=== PATIENT | male | born 1935 | race Caucasian/White ===

== ENCOUNTER 2020-07-13 09:48 | Inpatient (IN) | payer MEDICARE ==
[2020-07-13 10:39] LABS: #Basophils 0.1 10x3/uL (0.0-0.2); #Eosinphils 0.1 10x3/uL (0.0-0.5); #Monocytes 0.5 10x3/uL (0.0-1.1); #Neutrophils 6.4 10x3/uL (1.5-8.4); %Basophils 0.6 % (0.0-2.0); %Eosinophils 1.6 % (0.0-6.0); %Lymphocytes 11.4 % (18.0-47.0); %Monocytes 6.2 % (0.0-10.0); %Neutrophils 78.5 % (40.0-75.0); Hemoglobin 13.4 g/dL (13.5-17.5); Mean Corpuscular HGB CONC 32.8 g/dL (32.0-36.0); Mean Corpuscular Hemoglobin 30.4 pg (27.0-33.0); Mean Corpuscular Volume 92.7 fl (81.2-95.1); Mean Platelet Volume 10.5 fl (7.4-10.4); Platelet Count 162 10x3/uL (150-450); RBC Distribution Width 12.8 % (11.5-14.5); Red Blood Cell (RBC) Count 4.41 10x6/uL (4.32-5.72); White Blood Cell (WBC) Count 8.2 10x3/uL (3.5-10.5)
[2020-07-13 10:45] LABS: ALT (SGPT) 135 U/L (8-55); AST (SGOT) 59 U/L (5-34); Albumin 3.5 g/dL (3.4-4.8); Alkaline Phosphatase 194 U/L (40-110); Anion Gap 13 mmol/L (10-20); BUN (Urea Nitrogen) 25 mg/dL (8.4-25.7); Bilirubin, Total 1.1 mg/dL (0.2-1.2); Calc. Creatinine Clearance 0 mL/min (70-130); Calcium 8.4 mg/dL (7.8-10.44); Carbon Dioxide 22 mmol/L (23-31); Chloride 110 mmol/L (98-107); Globulin 2.7 g/dL (2.4-3.5); Glucose 143 mg/dL (83-110); Lipase 47 U/L (8-78); Potassium 3.6 mmol/L (3.5-5.1); Protein, Total 6.2 g/dL (5.8-8.1); Sodium 141 mmol/L (136-145)
[2020-07-13] MEDS ORDERED: Piperacillin/Tazobactam 3.375 GM VIAL ONE (12:16)
[2020-07-13] MEDS ORDERED: HYDROcodone/Acetaminophen 5/325 mg Tablet PO PRN (14:49)
[2020-07-13] MEDS ORDERED: Senokot S 8.6-50 MG TAB PO PRN (14:49)
[2020-07-13] MEDS ORDERED: Acetaminophen 325 MG TAB PO PRN (14:49)
[2020-07-13] MEDS ORDERED: Ondansetron PF 4 MG/2 ML Vial IVP PRN (14:49)
[2020-07-13] MEDS ORDERED: Morphine 2 MG/ML VIAL SLOW IVP PRN (14:58)
[2020-07-13 16:06] LABS: Band 1 % (5-11); Eosinophils 1 % (0-10); Hemoglobin 12.5 g/dL (13.5-17.5); Lymphocytes 12 % (21-51); MDiff Complete? YES; Mean Corpuscular HGB CONC 32.3 g/dL (32.0-36.0); Mean Corpuscular Volume 92.8 fl (81.2-95.1); Mean Platelet Volume 10.7 fl (7.4-10.4); Monocytes 5 % (0-10); Neutrophil 81 % (42-75); Platelet Count 126 10x3/uL (150-450); Platelet Morphology Comment Appears Decreased; RBC Morphology Normal; Red Blood Cell (RBC) Count 4.17 10x6/uL (4.32-5.72); White Blood Cell (WBC) Count 7.3 10x3/uL (3.5-10.5)
[2020-07-13] MEDS: Sodium Chloride 0.9% 1,000 ML IV SCH ×3 (16:23→20:58)
[2020-07-13 17:19] VITALS: BMI 26.6
[2020-07-13] MEDS: Piperacillin/Tazobactam 3.375 GM in Sodium Chloride 0.9% 100 ML IVPB SCH ×2 (18:29→23:44)
[2020-07-13] MEDS: Tamsulosin HCl 0.4 MG CAP PO SCH (20:56)
[2020-07-13] MEDS: Atorvastatin Calcium 20 MG TAB PO SCH (20:56)
[2020-07-13] MEDS: Zolpidem Tartrate 5 MG TAB PO PRN (22:19)
[2020-07-14 04:30] LABS: SARS-CoV-2 PCR by NAA Not Detected (NotDetected)
[2020-07-14] MEDS: Piperacillin/Tazobactam 3.375 GM in Sodium Chloride 0.9% 100 ML IVPB SCH ×4 (05:03→23:02)
[2020-07-14 06:47] LABS: ALT (SGPT) 85 U/L (8-55); AST (SGOT) 35 U/L (5-34); Albumin 2.9 g/dL (3.4-4.8); Alkaline Phosphatase 145 U/L (40-110); Anion Gap 10 mmol/L (10-20); BUN (Urea Nitrogen) 20 mg/dL (8.4-25.7); Calc. Creatinine Clearance 35 mL/min (70-130); Calcium 7.8 mg/dL (7.8-10.44); Carbon Dioxide 24 mmol/L (23-31); Chloride 114 mmol/L (98-107); Globulin 2.2 g/dL (2.4-3.5); Glucose 83 mg/dL (83-110); Protein, Total 5.1 g/dL (5.8-8.1); Sodium 144 mmol/L (136-145)
[2020-07-14 06:48] LABS: INR-International Normal Ratio 1.1; Prothrombin Time 11.1 sec (9.5-12.1)
[2020-07-14] MEDS: Tamsulosin HCl 0.4 MG CAP PO SCH ×2 (09:27→20:50)
[2020-07-14] MEDS: Losartan Potassium 50 MG TAB PO SCH (09:27)
[2020-07-14] MEDS ORDERED: hydrALAZINE 20 MG/ML VIAL SLOW IVP SCH (11:00)
[2020-07-14] MEDS ORDERED: PROPOFOL 20 ML ONE (13:00)
[2020-07-14] MEDS ORDERED: Lidocaine 2% MPF 10 ML AMP (For Epidural Use) ONE (13:06)
[2020-07-14] MEDS ORDERED: Fentanyl 100 MCG/2 ML VIAL ONE (13:07)
[2020-07-14] MEDS ORDERED: Iopamidol 15 ML ONE (13:08)
[2020-07-14] MEDS ORDERED: Famotidine/PF 20 mg/2ml Vial ONE (13:09)
[2020-07-14] MEDS ORDERED: SUGAMMADEX SODIUM 500 MG/5 ML VIAL ONE (13:09)
[2020-07-14] MEDS ORDERED: Rocuronium Bromide 10 MG/ML (10ML VIAL) ONE (13:24)
[2020-07-14] MEDS ORDERED: Ondansetron PF 4 MG/2 ML Vial ONE (13:25)
[2020-07-14] MEDS ORDERED: Metoclopramide HCl 10 MG/2 ML VIAL ONE (13:25)
[2020-07-14] MEDS ORDERED: Metoprolol Tartrate 5 MG/5 ML VIAL ONE ×2 (13:37→15:03)
[2020-07-14] MEDS ORDERED: Indomethacin 50 MG SUPP PR SCH (14:00)
[2020-07-14] MEDS ORDERED: ePHEDrine 50 MG/ML VIAL ONE (14:13)
[2020-07-14] MEDS ORDERED: Glycopyrrolate 0.2 MG/ML 5 ML SYRINGE ONE (14:26)
[2020-07-14] MEDS: Sodium Chloride 0.9% 1,000 ML IV SCH ×2 (15:38→21:57)
[2020-07-14] MEDS: Dutasteride 0.5 MG CAP PO SCH (15:38)
[2020-07-14] MEDS: Zolpidem Tartrate 5 MG TAB PO PRN (20:50)
[2020-07-14] MEDS: Atorvastatin Calcium 20 MG TAB PO SCH (20:50)
[2020-07-15] MEDS: Piperacillin/Tazobactam 3.375 GM in Sodium Chloride 0.9% 100 ML IVPB SCH ×2 (05:23→13:57)
[2020-07-15] MEDS: hydrALAZINE 20 MG/ML VIAL SLOW IVP PRN ×2 (05:25→13:48)
[2020-07-15] MEDS ORDERED: Bupivacaine PF 0.5% 30 ML VIAL ONE (07:00)
[2020-07-15] MEDS ORDERED: CEFAZOLIN 1 GM VIAL ONE (07:00)
[2020-07-15] MEDS ORDERED: EPINEPHrine 1 MG/ML AMP ONE (07:00)
[2020-07-15 07:18] LABS: #Basophils 0.1 10x3/uL (0.0-0.2); #Eosinphils 0.1 10x3/uL (0.0-0.5); #Monocytes 0.5 10x3/uL (0.0-1.1); #Neutrophils 5.3 10x3/uL (1.5-8.4); %Basophils 0.7 % (0.0-2.0); %Eosinophils 1.5 % (0.0-6.0); %Lymphocytes 11.8 % (18.0-47.0); %Monocytes 7.4 % (0.0-10.0); %Neutrophils 77.3 % (40.0-75.0); Mean Corpuscular HGB CONC 33.7 g/dL (32.0-36.0); Mean Corpuscular Hemoglobin 30.9 pg (27.0-33.0); Mean Corpuscular Volume 91.7 fl (81.2-95.1); Mean Platelet Volume 10.5 fl (7.4-10.4); Platelet Count 124 10x3/uL (150-450); RBC Distribution Width 12.6 % (11.5-14.5); Red Blood Cell (RBC) Count 4.21 10x6/uL (4.32-5.72); White Blood Cell (WBC) Count 6.8 10x3/uL (3.5-10.5)
[2020-07-15 07:31] LABS: ALT (SGPT) 67 U/L (8-55); AST (SGOT) 26 U/L (5-34); Albumin 3.1 g/dL (3.4-4.8); Alkaline Phosphatase 136 U/L (40-110); Anion Gap 15 mmol/L (10-20); BUN (Urea Nitrogen) 18 mg/dL (8.4-25.7); Bilirubin, Total 1.3 mg/dL (0.2-1.2); Calc. Creatinine Clearance 39 mL/min (70-130); Calcium 8.1 mg/dL (7.8-10.44); Carbon Dioxide 20 mmol/L (23-31); Chloride 111 mmol/L (98-107); Globulin 2.4 g/dL (2.4-3.5); Glucose 91 mg/dL (83-110); Lipase 31 U/L (8-78); Potassium 3.8 mmol/L (3.5-5.1); Protein, Total 5.5 g/dL (5.8-8.1); Sodium 142 mmol/L (136-145)
[2020-07-15] MEDS ORDERED: Fentanyl 100 MCG/2 ML VIAL ONE (07:51)
[2020-07-15] MEDS ORDERED: PROPOFOL 20 ML ONE (07:51)
[2020-07-15] MEDS ORDERED: Lidocaine 1% PF 5 ML VIAL ONE (07:53)
[2020-07-15] MEDS ORDERED: Dexamethasone 4 mg/ml Vial ONE (07:54)
[2020-07-15] MEDS ORDERED: Ondansetron PF 4 MG/2 ML Vial ONE (07:54)
[2020-07-15] MEDS ORDERED: Rocuronium Bromide 10 MG/ML (10ML VIAL) ONE (07:56)
[2020-07-15] MEDS ORDERED: PHENYLEPHRINE-NS 100 MCG/ML 10 ML SYRINGE ONE (08:01)
[2020-07-15] MEDS ORDERED: Esmolol 100 MG/10 ML VIAL ONE (08:19)
[2020-07-15] MEDS ORDERED: Glycopyrrolate 0.2 MG/ML 5 ML SYRINGE ONE (09:03)
[2020-07-15] MEDS ORDERED: Promethazine HCl 25 MG/ML VIAL IM PRN (09:21)
[2020-07-15] MEDS ORDERED: Promethazine HCl 25 MG/ML VIAL SLOW IVP PRN (09:21)
[2020-07-15] MEDS ORDERED: Ondansetron HCl/PF 4 MG/2 ML Vial IVP PRN (09:21)
[2020-07-15] MEDS: Dutasteride 0.5 MG CAP PO SCH (12:10)
[2020-07-15] MEDS: Tamsulosin HCl 0.4 MG CAP PO SCH (12:10)
[2020-07-15] MEDS: Losartan Potassium 50 MG TAB PO SCH (12:10)
[2020-07-15 13:36] VITALS: TEMP 97.5
[2020-07-15 13:52] VITALS: BP 173/107
== END 2020-07-15 17:49 | disposition home or self-care (01) | DRG 418 ==
LOC: CSHERS 09:48 → CSHTELE 14:34
PROVIDERS: ADMIT Internal Medicine; ATTEND Family Medicine
PROC: 0DJ08ZZ Inspection of Upper Intestinal Tract, Via Natural or Artificial Opening Endoscopic (ICD-10-PCS; 2020-07-14)
PROC: 0FC98ZZ Extirpation of Matter from Common Bile Duct, Via Natural or Artificial Opening Endoscopic (ICD-10-PCS; 2020-07-14)
PROC: BF101ZZ Fluoroscopy of Bile Ducts using Low Osmolar Contrast (ICD-10-PCS; 2020-07-14)
PROC: 0FT44ZZ Resection of Gallbladder, Percutaneous Endoscopic Approach (ICD-10-PCS; principal; 2020-07-15)
PROC: 0BQT4ZZ Repair Diaphragm, Percutaneous Endoscopic Approach (ICD-10-PCS; 2020-07-15)
PROC: BF101ZZ Fluoroscopy of Bile Ducts using Low Osmolar Contrast (ICD-10-PCS; 2020-07-15)
DX: K80.70 Calculus of gallbladder and bile duct without cholecystitis without obstruction (principal); N17.9 Acute kidney failure, unspecified; R74.01 Elevation of levels of liver transaminase levels; Z88.6 Allergy status to analgesic agent; K21.9 Gastro-esophageal reflux disease without esophagitis; E78.5 Hyperlipidemia, unspecified; I25.10 Atherosclerotic heart disease of native coronary artery without angina pectoris; I12.9 Hypertensive chronic kidney disease with stage 1 through stage 4 chronic kidney disease, or unspecified chronic kidney disease; N18.30 Chronic kidney disease, stage 3 unspecified; N40.0 Benign prostatic hyperplasia without lower urinary tract symptoms; K44.9 Diaphragmatic hernia without obstruction or gangrene; K22.2 Esophageal obstruction; K27.9 Peptic ulcer, site unspecified, unspecified as acute or chronic, without hemorrhage or perforation; Z20.822 Contact with and (suspected) exposure to COVID-19
CPT/HCPCS: 36415; 71046; 74176; 74330; 80053; 83690; 83880; 85025; 85610; 86850; 86900; 86901; 87635; 88304; 88305; 93005; 93010; 96365; J0171; J0360; J0690; J1100; J2001; J2405; J2543; J2704; J2765; J3010; J3490; Q9967; S0020; S0028; U0003; U0005

== ENCOUNTER 2022-03-11 11:05 | Emergency (ER) | payer MEDICARE | END 2022-03-11 14:12 | disposition home or self-care (01) | LOC: CSHERS 11:05 | DX: U07.1 COVID-19 (principal); J06.9 Acute upper respiratory infection, unspecified; I25.10 Atherosclerotic heart disease of native coronary artery without angina pectoris; I10 Essential (primary) hypertension; E78.00 Pure hypercholesterolemia, unspecified | CPT/HCPCS: 71045 ==